=== PATIENT | female | born 1985 | race Asian ===

== ENCOUNTER → 2016-04-22 | Outpatient (CLI) | payer OTHER ==
[~2016-04-22] MED LIST: PREN1TAB29
[2016-04-22 12:05] LABS: GTGD 50 Grams
== END | disposition home or self-care (01) ==
LOC: C.LAB 09:21
PROVIDERS: ATTEND Obstetrics & Gynecology
DX: Z34.82 Encounter for supervision of other normal pregnancy, second trimester (principal)

== ENCOUNTER → 2016-05-03 | Outpatient (CLI) | payer OTHER | END | disposition home or self-care (01) | LOC: C.LAB 09:03 | PROVIDERS: ATTEND Obstetrics & Gynecology | DX: O99.810 Abnormal glucose complicating pregnancy (principal) ==

== ENCOUNTER → 2016-06-21 | Outpatient (CLI) | payer OTHER | END | disposition home or self-care (01) | LOC: C.LAB 17:00 | PROVIDERS: ATTEND Obstetrics & Gynecology | DX: R81 Glycosuria (principal); O26.92 Pregnancy related conditions, unspecified, second trimester; Z3A.00 Weeks of gestation of pregnancy not specified ==

== ENCOUNTER → 2016-09-07 | Outpatient (CLI) | payer OTHER | END | disposition home or self-care (01) | LOC: C.LABSPEC 15:41 | PROVIDERS: ATTEND Obstetrics & Gynecology | DX: Z34.83 Encounter for supervision of other normal pregnancy, third trimester (principal) ==

== ENCOUNTER 2016-09-24 13:37 | Inpatient (IN) | payer OTHER ==
[~2016-09-24] VITALS: Ht 149.9 cm; Wt 70.5 kg
[2016-09-24] MEDS ORDERED: PREN1TAB29 (14:27)
[2016-09-24 14:28] VITALS: Ht 149.9 cm; Wt 70.5 kg
[2016-09-24] MEDS ORDERED: LACTATED RINGER'S 1000ML 1,000 ML IV SCH ×2 (16:17→21:24)
[2016-09-24] MEDS ORDERED: LACTATED RINGER'S 1000ML 1,000 ML IV PRN (16:17)
[2016-09-24 16:45] LABS: MEAN CELL VOLUME 87.1 fL (80-100); MEAN CORPUSCULAR HEMOGLOBIN 28.3 pg (25-34); MEAN CORPUSCULAR HGB CONC 32.5 g/dl (32-36); PLATELET COUNT 283 K/uL (130-400); RED BLOOD COUNT 4.59 M/uL (4.2-5.4); WHITE BLOOD COUNT 8.84 K/uL (4.8-10.8)
[2016-09-24] MEDS ORDERED: BUPIVACAINE 0.25% 30 ML VIAL ONE ×2 (16:50→17:44)
[2016-09-24] MEDS ORDERED: FENTANYL CITRATE INJ 50 MCG/1 ML 2 ML VIAL ONE (16:51)
[2016-09-24] MEDS ORDERED: EpHEDrine SULFATE INJ 50 MG/ML AMP ONE (16:51)
[2016-09-24] MEDS ORDERED: FENTANYL 2MCG/ML ROPIV 1.25MG/ML 100ML BAG EPI ONE (16:51)
[2016-09-24] MEDS ORDERED: LACTATED RINGER'S 1000ML 500 ML IV PRN (18:26)
[2016-09-24] MEDS ORDERED: NALOXONE HCL INJ 1 MG in SODIUM CHLORIDE 0.9% 1000ML 1,000 ML IV PRN (18:26)
[2016-09-24] MEDS ORDERED: DiphenhydrAMINE HCL 50 MG/ML VIAL IV PRN (18:30)
[2016-09-24] MEDS ORDERED: FENTANYL 2MCG/ML ROPIV 1.25MG/ML 100ML BAG EPI PRN (18:30)
[2016-09-24] MEDS ORDERED: ONDANSETRON INJ 2 MG/ML 2 ML VIAL IV PRN (18:30)
[2016-09-24] MEDS ORDERED: NALOXONE HCL INJ 0.4 MG/1 ML VIAL/CARP IV PRN (18:30)
[2016-09-24] MEDS ORDERED: NALBUPHINE HCL INJ 10 MG/ML AMP IV PRN (18:30)
[2016-09-24] MEDS ORDERED: EpHEDrine SULFATE INJ 50 MG/ML AMP IV PRN (18:30)
[2016-09-24] MEDS ORDERED: OXYTOCIN 30 UNITS/500ML NSS IV ONE (20:54)
[2016-09-24] MEDS ORDERED: LANOLIN OINT EXT PRN ×2 (21:30)
[2016-09-24] MEDS ORDERED: ACETAMINOPHEN 325 MG TAB PO PRN (21:30)
[2016-09-24] MEDS ORDERED: DIPHTHERIA/TETANUS/PERTUSSIS 0.5 ML SYR/VIAL IM. ONE (21:30)
[2016-09-24] MEDS ORDERED: SUPERCREAM 0.870 % 15GM JAR EXT PRN (21:30)
[2016-09-24] MEDS ORDERED: BENZOCAINE 20% AER SPR 82.5 GM CAN EXT PRN (21:30)
[2016-09-24] MEDS ORDERED: OXYTOCIN 30 UNITS/500ML NSS IV PRN (21:30)
[2016-09-24] MEDS ORDERED: OXYCODONE/ACETAMINOPHEN 5-325 TAB PO PRN (21:30)
[2016-09-24] MEDS ORDERED: HYDROCORTISONE ACETATE 25 MG SUPP PR PRN (21:30)
--- NOTE | 2016-09-24 21:30 | Vaginal Delivery Summary ---
Vaginal Delivery Summary Marvin Veras is a 31yo who presented at 38 4/7 with spontaneous labor. She was managed with epidural for pain management, AROM for augmentation. She reached complete dilation with an urge to push and I was called to the bedside. Over several contractions she was able to push the head of the baby to . Due to a prolonged phase and low FHR in between contractions , the decision was made to create a midline episiotomy. This was done to approx 1cm depth down the perineum. Additional pushing efforts caused extension of this episiotomy to the anal verge as the head of the infant delivered in the OA position. The shoulders and remainder of the infant delivered without difficulty. The was placed on the maternal abdomen where nurses provided bulb suction. The cord was doubly clamped and cut by the FOB. The made respiratory efforts and moved all extremities equally. The cervix, vagina and perineum were examined and found to have a second degree laceration which was repaired using vicryl suture. After repair the patient felt another urge to push and delivered her placenta. Unfortunately this disrupted her repair, which was then re-created using vicryl suture once more. The placenta was examined and found to be intact with a 3 vessel cord. At the completion of delivery and repair, the mother and were both in good condition, the fundus was firm, and lochia was minimal. EBL is 400cc for the delivery.
--- NOTE | 2016-09-24 23:23 | Anesthesia Procedure Note ---
Anesthesia Epidural Removal Nt Date & Time Sep 24, 2016 at 23:23 Vital Signs Pain Intensity: 0.0 Notes Mental Status: alert / awake / arousable, participated in evaluation Nausea / Vomiting: adequately controlled Pain: adequately controlled Airway Patency, RR, SpO2: stable & adequate BP & HR: stable & adequate Hydration State: stable & adequate Neuraxial Anesthesia: was administered Anesthetic Complications: no major complications apparent, pt satisfied with anesthetic care Epidural: removed without complications, with tip intact
[2016-09-24] MEDS: IBUPROFEN 600 MG TAB PO PRN (23:49)
[2016-09-25] VITALS (7 sets, daily range): BP systolic 92–113; BP diastolic 61–76; PULSE 78–92; TEMP 36.5–37.3; O2SAT 97–99
[2016-09-25] MEDS: IBUPROFEN 600 MG TAB PO PRN ×5 (03:50→20:37)
--- NOTE | 2016-09-25 07:30 | Progress Note ---
Subjective Sep 25, 2016. Subjective conversation w/ patient, physical exam Ambulation: ambulating normally Voiding: no voiding problems Diet Tolerance: Regular Diet Lochia: Small Feeding Type: Breast Feeding Pain: some cramps, using motrin and it helps Objective Vital Signs Date Time Temp Pulse Resp B/P (MAP) Pulse Ox O2 Delivery O2 Flow Rate FiO2 09/25/16 04:30 37.0 80 20 110/70 (83) Room Air 09/25/16 00:30 Room Air 09/25/16 00:30 37.3 90 20 110/69 (83) Room Air Physical Exam General Appearance: WELL-APPEARING, WD/WN, NO APPARENT DISTRESS Respiratory/Chest: lungs clear Cardiovascular: regular rate, rhythm Abdomen: non tender, soft Fundus: Firm, Relation to Umbilicus (2 down) Extremities: non-tender Laboratory Results Last 24 Hours Test 09/24/16 16:25 09/25/16 05:15 White Blood Count 8.84 K/uL Red Blood Count 4.59 M/uL Hemoglobin 13.0 g/dL 10.9 g/dL Hematocrit 40.0 % 33.0 % Mean Corpuscular Volume 87.1 fL Mean Corpuscular Hemoglobin 28.3 pg Mean Corpuscular Hemoglobin Concent 32.5 g/dl RDW Standard Deviation 44.1 fL RDW Coefficient of Variation 13.9 % Platelet Count 283 K/uL Mean Platelet Volume 10.0 fL Assessment and Plan Post- Day#: 1 Continue Routine Care: stable, routine care. began to review pp instructions. they are appreciative that we were involved her care due to her insurance and Dr. Chambers being out of town.
[2016-09-25] MEDS: PRENATAL VITAMIN TAB PO SCH (07:44)
[2016-09-25] MEDS: DOCUSATE SODIUM 100 MG CAP PO SCH ×2 (07:44→20:36)
[2016-09-26] MEDS: IBUPROFEN 600 MG TAB PO PRN ×3 (01:09→10:56)
--- NOTE | 2016-09-26 07:35 | Discharge Instructions ---
Discharge Instructions Date of Service Sep 26, 2016. Admission Reason for Admission: Normal Labor And Delivery Discharge Discharge Diagnosis / Problem: after delivery Discharge Goals Goal(s): Routine recovery after delivery Medications Continue Dispensed Medications: supercream, dermaplast, tucks, lansinoh Activity Recommendations Activity Limitations: as noted below . Instructions / Follow-Up Instructions / Follow-Up ACTIVITY RECOMMENDATIONS: * Gradual return to full activity over the next 2-3 weeks. * No lifting - nothing heavier than baby over the next 2-3 weeks. * Do not engage in vigorous exercise, sexual activity or sports until cleared by your physician. * Do not drive or operate any motorized equipment until cleared by your physician. * You may shower/bathe daily. MEDICATIONS: For discomfort or pain, you may use Acetaminophen (Tylenol), Ibuprofen (Advil), or Naproxen (Aleve) following the package directions. For constipation you may use Colace following the package directions. BREAST CARE: If you are not breast feeding: * Wear a supportive bra 24 hours a day for one to two weeks. * Avoid stimulating your breasts and nipples as much as possible during the first few weeks after delivery. * When taking a shower, have the warm water hit your back, not breasts. * When your breasts feel full, apply ice packs. Usually three to four times a day helps ease the discomfort. * Take a mild pain medication (Tylenol / Motrin) when you are uncomfortable. If breast feeding: * Use breast milk to lubricate nipples. Lansinoh cream may be used for sore nipples. You do not need to remove cream prior to breast feeding. If using a different brand of cream, check the label for directions regarding removal of cream prior to nursing. * Wear a supportive bra. * If having problems with breasts or breast feeding, call a data warehouse consultant or your health care provider. EPISIOTOMY CARE: After delivery, if you have an episiotomy (stitches), the following steps will ease discomfort and aid healing. * For the first 24 hours after delivery, place ice packs next to your episiotomy to help reduce swelling. * After the first 24 hour-period, sitz baths, either portable or in the tub, are suggested. A shower with a shower arm sprayed over the episiotomy may be comforting. * Nelly care should be done after each voiding and bowel movement. Squirt warm water from a plastic bottle over the perineum (region of the body between the anus and urinary opening) and pat dry. * Use Dermoplast to ease discomfort. Shake container. Cow[place] directly over the episiotomy. Place a Tucks on a clean sanitary pad next to your episiotomy. SPECIAL CARE INSTRUCTIONS: When you are discharged from the hospital, it is important for you to follow the instructions listed below: * During the first week at home, you should be able to care for yourself and your baby. In addition, the usual light household activities are encouraged. * Limit your activities to the way you feel. Do not try to clean the house or move furniture. Be sensible. * If you actively engage in sports and have done so up until the time of your delivery, you may resume these activities as soon as you feel able. This may take up to one month or even longer. Use good judgment. * Continue to take your vitamins for at least six weeks after the of your baby. * Your diet need not be limited unless you were on a special diet before your delivery. Breast-feeding mothers need around 2500 calories per day and at least 64-80 ounces of fluid per day (8 to 10 glasses). * You should eat foods from the four major food groups. Crash diets or fad diets are to be avoided. Eating lean meats, fresh fruits and vegetables, low-fat dairy products, high fiber foods and a regular exercise program, will help you get back to your pre- weight without putting your health at risk. * Constipation is sometimes a problem after delivery. Take a mild laxative as needed. If breast feeding, Milk of Magnesia is acceptable to use. You may use a suppository or Fleets enema if no episiotomy. * A daily shower or tub bath is suggested. Be sure to thoroughly and gently dry the perineum. * A bloody vaginal discharge will usually continue until around four weeks post . A small amount of bleeding may continue for as long as six weeks. Vaginal discharge changes from the bright red bleeding after delivery to pink then brownish and finally yellowish-pink before becoming white and disappearing. * Bleeding may increase with activity. Your first period may come in 4-8 weeks. If you are breast feeding, your period may be delayed even longer. * [place] (sex) can begin whenever both you and your partner feel comfortable and do not have any form of genital infection. It is recommended that you wait at least six weeks for internal and external healing to occur. If you have questions, please talk to your health care practitioner. A condom should be used to prevent infection and . * Foreplay, gentle intercourse and lubrication is very important the first several times to prevent pain. A water-based lubricant such as K-Y jelly or Astroglide may be used. * If you have RH negative blood and your baby is RH positive, you will receive RHOGAM by injection prior to discharge. The nurse will give you a card to keep with you that has the date and place that you received RHOGAM after delivery. * During your care, you had a Rubella screen done to check for the presence of rubella antibodies in your blood. If your test was negative, you will receive a Rubella vaccine prior to discharge. This vaccine may cause a fever, soreness at the injection site and flu-like symptoms. If these symptoms persist, notify your health care practitioner. is not advised for one month after a Rubella vaccine. * Verbalizes understanding of car seat law as reviewed with patient nursing. * Car Seat hand-out given and reviewed with patient by nursing. * Shaken baby information reviewed with patient by nursing. Call you doctor if: * Heavy bleeding (saturating several pads an hour) or passing clots the size of your fist. * A fever >101 degrees F (38.3 degrees C) on two occasions four hours apart and /or chills. * Unusual pain in the pelvic or vaginal areas. * "Baby Blues" lasting longer than two weeks. If you have any questions or concerns, call your health care practitioner at . FOLLOW UP VISIT: * Please call the office at to schedule a 6 week examination. It is important you keep this appointment. It is important for you to make arrangements for either yearly or twice yearly check-ups thereafter. Current Hospital Diet Patient's current hospital diet: Regular OB Diet Discharge Diet Recommended Diet: Regular Diet Pending Studies Studies pending at discharge: no Medical Emergencies . Who to Call and When: Medical Emergencies: If at any time you feel your situation is an emergency, please call 911 immediately. . Non-Emergent Contact Non-Emergency issues call your: Licensed Funeral Director . . "Provider Documentation" section prepared by Maddy Leach. . VTE Core Measure Inpt VTE Proph given/why not?: Treatment not indicated
--- NOTE | 2016-09-26 07:38 | Progress Note ---
Subjective Sep 26, 2016. Subjective conversation w/ patient, physical exam Ambulation: ambulating normally Voiding: no voiding problems Diet Tolerance: Regular Diet Lochia: Small Feeding Type: Breast Feeding Pain: no pain issues Comment: needs breast pump script Objective Vital Signs Date Time Temp Pulse Resp B/P (MAP) Pulse Ox O2 Delivery O2 Flow Rate FiO2 09/25/16 23:29 36.7 82 16 92/61 (71) 98 Room Air 09/25/16 23:27 Room Air 09/25/16 20:40 Room Air 09/25/16 20:40 36.7 78 16 100/63 (75) 97 Room Air 97.0 09/25/16 15:56 36.8 92 20 113/76 (88) Room Air 09/25/16 15:50 Room Air 09/25/16 12:30 37.0 92 18 107/71 (83) 99 Room Air 09/25/16 07:45 Room Air Physical Exam General Appearance: WELL-APPEARING, WD/WN, NO APPARENT DISTRESS Respiratory/Chest: lungs clear Cardiovascular: regular rate, rhythm Abdomen: non tender, soft Fundus: Firm, Relation to Umbilicus (2 down) Extremities: non-tender Assessment and Plan Post- Day#: 2 Continue Routine Care: stable, routine care. pt of Dr. Cho--she may opt to see him for check, encouraged to call his office. instructions reviewed and given. check at 6wks recommended.
[2016-09-26 07:46] VITALS: BP 100/67; PULSE 73; TEMP 36.3
[2016-09-26] MEDS: DOCUSATE SODIUM 100 MG CAP PO SCH (08:41)
[2016-09-26] MEDS: PRENATAL VITAMIN TAB PO SCH (08:41)
[2016-09-26 15:05] VITALS: BP_DIAS 67; PULSE 73; TEMP 36.3
== END 2016-09-26 15:05 | disposition home or self-care (01) | DRG 775 ==
LOC: C.OPB 13:37 → C.LD 13:38 → C.OPB 16:18 → C.OBG 09-25 00:10 → EDSTATUS 10-04 13:37
PROVIDERS: ADMIT Obstetrics & Gynecology; ATTEND Obstetrics & Gynecology
PROC: 10907ZC Drainage of Amniotic Fluid, Therapeutic from Products of Conception, Via Natural or Artificial Opening (ICD-10-PCS; principal; 2016-09-24)
PROC: 0KQM0ZZ Repair Perineum Muscle, Open Approach (ICD-10-PCS; principal; 2016-09-24)
PROC: 10E0XZZ Delivery of Products of Conception, External Approach (ICD-10-PCS; principal; 2016-09-24)
PROC: 4A1HXFZ Monitoring of Products of Conception, Cardiac Rhythm, External Approach (ICD-10-PCS; principal; 2016-09-24)
DX: O70.1 Second degree perineal laceration during delivery (principal); Z91.040 Latex allergy status; Z37.0 Single live birth; Z3A.38 38 weeks gestation of pregnancy

== ENCOUNTER → 2016-11-01 | Outpatient (CLI) | payer OTHER | END | disposition home or self-care (01) | LOC: C.PAPS 15:04 | PROVIDERS: ATTEND Obstetrics & Gynecology | DX: Z39.2 Encounter for routine postpartum follow-up (principal); R87.615 Unsatisfactory cytologic smear of cervix ==

== ENCOUNTER → 2016-11-21 | Outpatient (CLI) | payer OTHER | END | disposition home or self-care (01) | LOC: C.PAPS 14:32 | PROVIDERS: ATTEND Obstetrics & Gynecology | DX: R87.615 Unsatisfactory cytologic smear of cervix (principal) ==